=== PATIENT | female | born 1930 | race Caucasian/White ===

== ENCOUNTER 2020-10-08 14:35 | Outpatient (CLI) | payer MEDICARE, OTHER ==
[~2020-10-08] VITALS: Ht 157.5 cm; Wt 60.9 kg
[2020-10-08 15:11] VITALS: Ht 157.5 cm; Wt 60.9 kg
== END 2020-10-08 15:27 | disposition home or self-care (01) ==
LOC: D.OPS 14:35
PROVIDERS: ATTEND Family Medicine
DX: M81.0 Age-related osteoporosis without current pathological fracture (principal)